=== PATIENT | female | born 1985 | race Caucasian/White ===

== ENCOUNTER 2024-06-11 22:26 | Emergency (ER) | payer OTHER ==
[~2024-06-11] VITALS: Ht 165.1 cm; Wt 81.2 kg
[2024-06-11 22:30] VITALS: PULSE 90; RESP 18; TEMP 98.6
[2024-06-11 23:06] LABS: BASOPHILS # (AUTO) 0.1 (0.0-0.1); BASOPHILS % 1.4 % (0.0-1.0); EOSINOPHILS # (AUTO) 0.2 (0.0-0.4); EOSINOPHILS % 4.2 % (0.0-6.0); HEMATOCRIT 40.1 % (34.2-44.1); HEMOGLOBIN 12.5 g/dL (12.0-16.0); LYMPHOCYTES # (AUTO) 2.3 (1.0-3.2); LYMPHOCYTES % 40.6 % (18.0-39.1); MEAN CORPUSCULAR HEMOGLOBIN 28.9 pg (28-32); MEAN CORPUSCULAR HGB CONC 31.2 g/dL (31-35); MEAN CORPUSCULAR VOLUME 92.8 fL (81-99); MONOCYTES # (AUTO) 0.4 (0.2-0.8); MONOCYTES % 7.6 % (4.4-11.3); NEUTROPHILS # (AUTO) 2.7 (2.1-6.9); PLATELET COUNT 271 x10e3/uL (140-360); RED BLOOD COUNT 4.32 x10e6/uL (3.6-5.1); WHITE BLOOD COUNT 5.76 x10e3/uL (4.8-10.8)
[2024-06-11] MEDS: FAMOTIDINE 20 MG/2 ML VIAL IV STA (23:06)
[2024-06-11] MEDS: METHYLPREDNISOLONE SOD SUCC 125 MG/2ML VIAL IV ONE (23:07)
[2024-06-11] MEDS: DIPHENHYDRAMINE HCL INJ 50 MG/ML VIAL IV ONE (23:07)
[2024-06-11 23:21] LABS: ALBUMIN 4.5 g/dL (3.5-5.0); ALBUMIN/GLOBULIN RATIO 1.4 (0.8-2.0); ANION GAP 13.6 mmol/L (8-16); BILIRUBIN,TOTAL 0.4 mg/dL (0.2-1.2); CALCIUM 9.8 mg/dL (8.4-10.2); CREATININE, SERUM 0.9 mg/dL (0.57-1.11); POTASSIUM 3.6 mmol/L (3.5-5.1); TOTAL PROTEIN 7.8 g/dL (6.5-8.1)
[2024-06-11] MEDS ORDERED: IOPAMIDOL 370 MG/ML 100 ML INFUS..BTL INJ ONE (23:27)
[2024-06-12] MEDS ORDERED: MEDROL4 M2 PO (00:34)
[2024-06-12 00:54] VITALS: BP 142/88; PULSE 87; RESP 18; TEMP 98.6; O2SAT 98
== END 2024-06-12 00:52 | disposition home or self-care (01) ==
LOC: ER 22:29
DX: R21 Rash and other nonspecific skin eruption (principal); R10.12 Left upper quadrant pain; K21.9 Gastro-esophageal reflux disease without esophagitis; F41.9 Anxiety disorder, unspecified
CPT/HCPCS: 36415; 74177; 80053; 83690; 84702; 85025; 99284; J1200; J2919; Q9967